=== PATIENT | female | born 1945 | race Caucasian/White ===

== ENCOUNTER → 2016-09-23 | Outpatient (CLI) | payer OTHER ==
--- NOTE | 2016-09-23 21:48 | DI ---
XR WRIST COMPLETE MIN 3VW,09/23/2016 3:45 PM: Clinical History: Injury Previous Exam: None at this facility. Findings: 3 views of left wrist are obtained, and demonstrate diffuse osteopenia. There is a healing fracture of the left mid ulna. There is some callus formation noted around the fracture. Impression: Healing left mid ulnar fracture.
== END ==
LOC: MOB RAD 15:46
PROVIDERS: ATTEND Physician Assistant Medical
DX: M25.532 Pain in left wrist (principal); S52.292D Other fracture of shaft of left ulna, subsequent encounter for closed fracture with routine healing
CPT/HCPCS: 73110